=== PATIENT | male | born 1945 | race Caucasian/White ===

== ENCOUNTER 2021-10-05 09:41 | Outpatient (CLI) | payer OTHER ==
[2021-10-05 10:50] LABS: Hemoglobin 14.3 g/dL (13.5-17.5); Mean Corpuscular HGB CONC 32.8 g/dL (32.0-36.0); Mean Corpuscular Hemoglobin 28.2 pg (27.0-33.0); Mean Platelet Volume 10.4 fl (7.4-10.4); Platelet Count 268 10x3/uL (150-450); RBC Distribution Width 12.9 % (11.5-14.5); Red Blood Cell (RBC) Count 5.07 10x6/uL (4.32-5.72); White Blood Cell (WBC) Count 9.9 10x3/uL (3.5-10.5)
[2021-10-05 11:09] LABS: INR-International Normal Ratio 0.9; Prothrombin Time 10.3 sec (9.5-12.1)
[2021-10-05 11:13] LABS: Anion Gap 16 mmol/L (10-20); BUN (Urea Nitrogen) 13 mg/dL (8.4-25.7); Calc. Creatinine Clearance 0 mL/min (70-130); Calcium 9.4 mg/dL (7.8-10.44); Carbon Dioxide 24 mmol/L (23-31); Chloride 104 mmol/L (98-107); Glucose 141 mg/dL (83-110); Potassium 4.5 mmol/L (3.5-5.1); Sodium 139 mmol/L (136-145)
[2021-10-05 21:25] LABS: SARS-CoV-2 PCR by NAA Not Detected (NotDetected)
== END 2021-10-05 09:42 | disposition home or self-care (01) ==
LOC: LABBT 09:41
PROVIDERS: ATTEND Internal Medicine Cardiovascular Disease
DX: Z01.812 Encounter for preprocedural laboratory examination (principal); I47.1 Supraventricular tachycardia; Z20.822 Contact with and (suspected) exposure to COVID-19
CPT/HCPCS: 80048; 85027; 85610; U0003; U0005

== ENCOUNTER 2021-10-10 06:00 | Day surgery (SDC) | payer OTHER ==
[2021-10-06 14:22] VITALS: BMI 29.0
[2021-10-10] MEDS ORDERED: Lidocaine 2% Jelly 5 ML TUBE ONE (06:42)
[2021-10-10] MEDS ORDERED: fentaNYL Citrate/PF 100 MCG/2 ML SYRINGE ONE (06:42)
[2021-10-10] MEDS ORDERED: Phenylephrine 10 MG/ML VIAL ONE (06:42)
[2021-10-10] MEDS ORDERED: Lidocaine 1% (PF) 30 ML VIAL ONE (06:50)
[2021-10-10] MEDS ORDERED: Heparin 10,000 UNITS/ 10 ML VIAL ONE (06:50)
[2021-10-10] MEDS ORDERED: Heparin 25,000 units/D5W 0 ML ONE (06:50)
[2021-10-10] MEDS ORDERED: Isoproterenol 0.2 MG/1 ML AMP ONE (08:05)
[2021-10-10] MEDS ORDERED: DOBUTamine 250 MG/20 ML VIAL ONE (08:06)
[2021-10-10] MEDS ORDERED: DOPamine 400 MG/D5W 250 ML 0 ML ONE (08:07)
[2021-10-10] MEDS ORDERED: Propofol 500 MG/50 ML VIAL ONE (08:17)
[2021-10-10] MEDS ORDERED: PROPOFOL 40 ML ONE (09:20)
== END 2021-10-10 14:01 | disposition home or self-care (01) ==
LOC: SDC 06:00
PROVIDERS: ATTEND Internal Medicine Cardiovascular Disease
PROC: 02583ZZ Destruction of Conduction Mechanism, Percutaneous Approach (ICD-10-PCS; principal; 2021-10-10)
PROC: 02K83ZZ Map Conduction Mechanism, Percutaneous Approach (ICD-10-PCS; principal; 2021-10-10)
PROC: B244ZZ3 Ultrasonography of Right Heart, Intravascular (ICD-10-PCS; principal; 2021-10-10)
DX: I47.1 Supraventricular tachycardia (principal); I10 Essential (primary) hypertension; E78.5 Hyperlipidemia, unspecified; I25.10 Atherosclerotic heart disease of native coronary artery without angina pectoris; I25.2 Old myocardial infarction; I73.9 Peripheral vascular disease, unspecified; I69.328 Other speech and language deficits following cerebral infarction; I69.341 Monoplegia of lower limb following cerebral infarction affecting right dominant side; E11.9 Type 2 diabetes mellitus without complications; N40.0 Benign prostatic hyperplasia without lower urinary tract symptoms; Z87.891 Personal history of nicotine dependence; Z79.01 Long term (current) use of anticoagulants; Z79.4 Long term (current) use of insulin; Z79.84 Long term (current) use of oral hypoglycemic drugs; Z79.899 Other long term (current) drug therapy
CPT/HCPCS: 93005; 93613; 93621; 93653; 93662; C1732; C1759; C1894; C2630; J1250; J1265; J1644; J2001; J2370; J2704

== ENCOUNTER 2022-01-08 10:52 | Outpatient (CLI) | payer OTHER ==
[2022-01-08 12:25] LABS: Hemoglobin 13.7 g/dL (13.5-17.5); Mean Corpuscular HGB CONC 32.6 g/dL (32.0-36.0); Mean Corpuscular Hemoglobin 28.2 pg (27.0-33.0); Mean Corpuscular Volume 86.6 fl (81.2-95.1); Mean Platelet Volume 11.1 fl (7.4-10.4); Platelet Count 270 10x3/uL (150-450); RBC Distribution Width 13.4 % (11.5-14.5); Red Blood Cell (RBC) Count 4.85 10x6/uL (4.32-5.72); White Blood Cell (WBC) Count 8.7 10x3/uL (3.5-10.5)
[2022-01-08 12:33] LABS: INR-International Normal Ratio 0.9; Prothrombin Time 10.2 sec (9.5-12.1)
[2022-01-08 12:34] LABS: Anion Gap 14 mmol/L (10-20); BUN (Urea Nitrogen) 16 mg/dL (8.4-25.7); Calc. Creatinine Clearance 0 mL/min (70-130); Calcium 9.2 mg/dL (7.8-10.44); Carbon Dioxide 23 mmol/L (23-31); Chloride 103 mmol/L (98-107); Estimated GFR 91; Glucose 302 mg/dL (83-110); Sodium 135 mmol/L (136-145)
== END 2022-01-08 10:53 | disposition home or self-care (01) ==
LOC: LABBT 10:52
PROVIDERS: ATTEND Internal Medicine Cardiovascular Disease
DX: Z01.812 Encounter for preprocedural laboratory examination (principal); Z20.822 Contact with and (suspected) exposure to COVID-19
CPT/HCPCS: 80048; 85027; 85610; 87811

== ENCOUNTER 2022-01-11 07:10 | Day surgery (SDC) | payer OTHER ==
[2022-01-09 15:22] VITALS: BMI 28.8
[2022-01-11] MEDS ORDERED: Heparin 25,000 units/D5W 0 ML ONE (07:20)
[2022-01-11] MEDS ORDERED: Heparin 10,000 UNITS/ 10 ML VIAL ONE (07:20)
[2022-01-11] MEDS ORDERED: Protamine Sulfate 50 MG/5 ML VIAL ONE (07:20)
[2022-01-11] MEDS ORDERED: fentaNYL Citrate/PF 100 MCG/2 ML SYRINGE ONE (09:00)
[2022-01-11] MEDS ORDERED: Ketamine 50 MG/ML (10ML VIAL) ONE (09:00)
[2022-01-11] MEDS ORDERED: Midazolam HCl 2 mg/2 ml Vial ONE (09:00)
[2022-01-11] MEDS ORDERED: Phenylephrine 10 MG/ML VIAL ONE ×2 (09:01→09:17)
[2022-01-11] MEDS ORDERED: Propofol 500 MG/50 ML VIAL ONE (09:01)
[2022-01-11] MEDS ORDERED: PROPOFOL 200 MG/20 ML VIAL ONE ×2 (09:17→14:25)
[2022-01-11] MEDS ORDERED: Rocuronium Bromide 10 MG/ML (10ML VIAL) ONE (09:17)
[2022-01-11] MEDS ORDERED: Isoproterenol 0.2 MG/1 ML AMP ONE (10:25)
[2022-01-11] MEDS ORDERED: SUGAMMADEX SODIUM 200 MG/2 ML VIAL ONE (10:55)
[2022-01-11] MEDS ORDERED: Lidocaine 1% MPF 2 ML VIAL ONE (14:25)
== END 2022-01-11 15:15 | disposition home or self-care (01) ==
LOC: SDC 07:10
PROVIDERS: ATTEND Internal Medicine Cardiovascular Disease
PROC: 4A023FZ Measurement of Cardiac Rhythm, Percutaneous Approach (ICD-10-PCS; principal; 2022-01-11)
PROC: 4A0234Z Measurement of Cardiac Electrical Activity, Percutaneous Approach (ICD-10-PCS; principal; 2022-01-11)
PROC: B244ZZ3 Ultrasonography of Right Heart, Intravascular (ICD-10-PCS; principal; 2022-01-11)
PROC: 02K83ZZ Map Conduction Mechanism, Percutaneous Approach (ICD-10-PCS; principal; 2022-01-11)
DX: I47.1 Supraventricular tachycardia (principal); I25.10 Atherosclerotic heart disease of native coronary artery without angina pectoris; I25.2 Old myocardial infarction; I73.9 Peripheral vascular disease, unspecified; I10 Essential (primary) hypertension; E78.5 Hyperlipidemia, unspecified; E11.9 Type 2 diabetes mellitus without complications; K21.9 Gastro-esophageal reflux disease without esophagitis; N40.0 Benign prostatic hyperplasia without lower urinary tract symptoms; Z86.73 Personal history of transient ischemic attack (TIA), and cerebral infarction without residual deficits; Z87.891 Personal history of nicotine dependence; Z79.02 Long term (current) use of antithrombotics/antiplatelets; Z79.4 Long term (current) use of insulin; Z79.84 Long term (current) use of oral hypoglycemic drugs; Z79.899 Other long term (current) drug therapy
CPT/HCPCS: 93005; 93613; 93621; 93623; 93662; J1644; J2250; J2370; J2704; J2720

== ENCOUNTER 2024-04-22 09:09 | Outpatient (CLI) | payer OTHER | END 2024-04-22 09:10 | disposition home or self-care (01) | LOC: CT 09:09 | PROVIDERS: ATTEND Urology | DX: R31.0 Gross hematuria (principal); K80.20 Calculus of gallbladder without cholecystitis without obstruction; N28.1 Cyst of kidney, acquired; K59.00 Constipation, unspecified; K57.30 Diverticulosis of large intestine without perforation or abscess without bleeding; M43.17 Spondylolisthesis, lumbosacral region | CPT/HCPCS: 36415; 74178; 82565 ==

== ENCOUNTER 2024-05-08 21:36 | Inpatient (IN) | payer MEDICARE, OTHER ==
[2024-05-08 22:38] LABS: #Basophils Less than 0.03 10x3/uL (0.0-0.2); #Eosinophils Less than 0.03 10x3/uL (0.0-0.7); %Basophils 0.1 % (0.0-1.0); %Lymphocytes 4.8 % (21.0-51.0); %Monocytes 3.3 % (0.0-10.0); %Neutrophils 91.3 % (42.0-75.0); Hematocrit 41.8 % (42.0-52.0); Hemoglobin 13.3 g/dL (14.0-18.0); Mean Corpuscular HGB CONC 31.8 g/dL (32.0-36.0); Mean Corpuscular Hemoglobin 27.3 pg (27.0-31.0); Mean Corpuscular Volume 85.7 fL (78.0-98.0); Mean Platelet Volume 11.3 fL (7.4-10.4); Platelet Count 163 10x3/uL (130-400); RBC Distribution Width 14.7 % (11.5-14.5); Red Blood Cell (RBC) Count 4.88 mill/uL (4.70-6.10)
[2024-05-08 22:52] LABS: INR-International Normal Ratio 1.4; PTT 33.1 sec (22.9-36.1); Prothrombin Time 16.7 sec (12.0-14.7)
[2024-05-08 22:56] LABS: ALT (SGPT) 42 U/L (8-55); AST (SGOT) 32 U/L (5-34); Albumin 3.2 g/dL (3.4-4.8); Alkaline Phosphatase 150 U/L (40-110); Anion Gap 17 mmol/L (10-20); BUN (Urea Nitrogen) 28 mg/dL (8.4-25.7); Bilirubin, Total 1.2 mg/dL (0.2-1.2); Calc. Creatinine Clearance 0 mL/min (70-130); Calcium 8.6 mg/dL (7.8-10.44); Carbon Dioxide 13 mmol/L (23-31); Chloride 111 mmol/L (98-107); Estimated GFR 49; Globulin 3.2 g/dL (2.4-3.5); Glucose 254 mg/dL (83-110); Lipase 4 U/L (8-78); Protein, Total 6.4 g/dL (5.8-8.1); Sodium 137 mmol/L (136-145)
[2024-05-08 23:01] LABS: Troponin I 0.076 ng/mL (< 0.028)
[2024-05-08] MEDS ORDERED: Azithromycin 500 MG VIAL ONE (23:08)
[2024-05-08] MEDS ORDERED: Sodium Chloride 0.9% 100 ML ONE (23:08)
[2024-05-08] MEDS ORDERED: cefTRIAXone (ROCEPHIN) 2 GM VIAL ONE (23:08)
[2024-05-08 23:45] LABS: Bacteria/HPF None Seen HPF (None Seen); Bilirubin Negative (Negative); Blood, Urine 2+ (Negative); CAUTI Indications for Culture Pelvic or flank pain; Clarity Turbid (Clear); Glucose, Urine (Dipstick) Normal (Negative); Ketone, Urine Negative (Negative); Leukocyte 250 Leu/uL (Negative); Nitrite Negative (Negative); Protein, Urine (Dipstick) 50 mg/dL (Neg-Trace); Specific Gravity, Urine 1.022 (1.002-1.036); Urobilinogen 3 mg/dL (Less than 2); WBC/HPF 21-50 HPF (0-3)
[2024-05-08 23:48] LABS: Urine Culture Reflex Yes Yes
[2024-05-09] MEDS ORDERED: Aspirin Chewable 81 MG TAB ONE (00:49)
[2024-05-09 01:53] LABS: Lactic Acid 2.79 mmol/L (0.5-2.2)
[2024-05-09] MEDS ORDERED: Guaifenesin DM 100-10/5 ML UDCUP PO PRN (02:26)
[2024-05-09] MEDS ORDERED: Ondansetron PF 4 MG/2 ML Vial IVP PRN (02:26)
[2024-05-09] MEDS ORDERED: Acetaminophen 650 MG Suppository PR PRN (02:26)
[2024-05-09] MEDS ORDERED: Senokot S 8.6-50 MG TAB PO PRN (02:26)
[2024-05-09] MEDS ORDERED: Ondansetron ODT 4 MG TAB PO PRN (02:26)
[2024-05-09] MEDS ORDERED: Glucagon 1 MG/ML KIT IM PRN (02:32)
[2024-05-09] MEDS ORDERED: Dextrose 5% in Water 1,000 ML IV PRN (02:32)
[2024-05-09] MEDS ORDERED: Dextrose 50% Abboject 50 ML SYRINGE SLOW IVP PRN (02:32)
[2024-05-09 03:34] LABS: Actual Bicarbonate (HCO3v) 15.9 mEq/L (22-28); Base Excess -9.3 mEq/L (-2.0 to +3.0); Calcium, Ionized (venous) 1.07 mmol/L (1.16-1.32); Chloride (VBG) 108 mmol/L (98-106); Hematocrit-VBG 36 % (42.0-52.0); Hemoglobin (Hb) 12.4 g/dL (12.6-17.4); Potassium (VBG) 3.99 mmol/L (3.70-5.30); Sodium 136 mmol/L (133-146); pH (venous) 7.305 (7.32-7.43)
[2024-05-09 04:00] LABS: #Basophils 0.03 10x3/uL (0.0-0.2); #Eosinophils Less than 0.03 10x3/uL (0.0-0.7); %Basophils 0.2 % (0.0-1.0); %Lymphocytes 2.7 % (21.0-51.0); %Monocytes 3.2 % (0.0-10.0); %Neutrophils 92.4 % (42.0-75.0); Hematocrit 38.2 % (42.0-52.0); Hemoglobin 11.8 g/dL (14.0-18.0); Mean Corpuscular HGB CONC 30.9 g/dL (32.0-36.0); Mean Corpuscular Hemoglobin 27.5 pg (27.0-31.0); Mean Platelet Volume 11.9 fL (7.4-10.4); Platelet Count 143 10x3/uL (130-400); RBC Distribution Width 14.8 % (11.5-14.5); Red Blood Cell (RBC) Count 4.29 mill/uL (4.70-6.10)
[2024-05-09 04:25] VITALS: BMI 27.8
[2024-05-09 04:31] LABS: ALT (SGPT) 35 U/L (8-55); AST (SGOT) 26 U/L (5-34); Albumin 2.7 g/dL (3.4-4.8); Alkaline Phosphatase 107 U/L (40-110); Anion Gap 14 mmol/L (10-20); BUN (Urea Nitrogen) 27 mg/dL (8.4-25.7); Bilirubin, Total 0.6 mg/dL (0.2-1.2); Calc. Creatinine Clearance 64 mL/min (70-130); Carbon Dioxide 13 mmol/L (23-31); Chloride 112 mmol/L (98-107); Estimated GFR 59; Globulin 2.8 g/dL (2.4-3.5); Glucose 318 mg/dL (83-110); Protein, Total 5.5 g/dL (5.8-8.1); Sodium 135 mmol/L (136-145)
[2024-05-09] MEDS: Insulin Regular, Human 100 UNIT/ML 10 ML VIAL SC PRN (04:38)
[2024-05-09] MEDS ORDERED: Sodium Chloride 0.65% Nasal 44 ML BOT EA NARE PRN (04:42)
[2024-05-09 06:34] LABS: Troponin I 0.083 ng/mL (< 0.028)
[2024-05-09] MEDS: Apixaban 2.5 MG TAB PO SCH (09:23)
[2024-05-09] MEDS: Aspirin 81 mg Enteric Coated Tablet PO SCH (09:23)
[2024-05-09] MEDS: Sodium Chloride 0.9% 1,000 ML IV SCH (09:24)
[2024-05-09 09:33] LABS: Lactic Acid 2.93 mmol/L (0.5-2.2)
[2024-05-09] MEDS: Zonisamide 100 MG CAP PO SCH ×2 (13:18→20:15)
[2024-05-09] MEDS: Insulin Lispro 100 UNIT/ML 10 ML VIAL SC PRN ×2 (13:19→20:32)
[2024-05-09] MEDS: Insulin Glargine 30 UNITS/0.3 ML VIAL SC SCH (13:19)
[2024-05-09 14:13] LABS: Lactic Acid 2.33 mmol/L (0.5-2.2)
[2024-05-09] MEDS: Atorvastatin Calcium 40 MG TAB PO SCH (20:15)
[2024-05-09] MEDS: cefTRIAXone\\ROCEPHIN 1 GM in Sodium Chloride 0.9% 100 ML IVPB SCH (20:15)
[2024-05-09] MEDS: lamoTRIgine 100 MG TAB PO SCH (20:16)
[2024-05-09] MEDS: Tamsulosin HCl 0.4 MG CAP PO SCH (20:16)
[2024-05-09] MEDS: Ipratropium/Albuterol 3 ML NEB NEB PRN (20:59)
[2024-05-09] MEDS ORDERED: Non-Formulary Item 1 EACH (Atorvastatin Calcium [Atorvastatin Calcium] 80 MG Tablet) PO SCH (21:00)
[2024-05-09] MEDS ORDERED: Apixaban 5 MG TAB PO SCH (21:00)
[2024-05-10 04:09] LABS: #Basophils Less than 0.03 10x3/uL (0.0-0.2); %Basophils 0.1 % (0.0-1.0); %Eosinophils 0.4 % (0.0-10.0); %Lymphocytes 9.7 % (21.0-51.0); %Monocytes 5.7 % (0.0-10.0); %Neutrophils 83.3 % (42.0-75.0); Hematocrit 36.1 % (42.0-52.0); Hemoglobin 11.3 g/dL (14.0-18.0); Mean Corpuscular HGB CONC 31.3 g/dL (32.0-36.0); Mean Corpuscular Hemoglobin 27.6 pg (27.0-31.0); Mean Platelet Volume 11.1 fL (7.4-10.4); Platelet Count 157 10x3/uL (130-400); RBC Distribution Width 15.2 % (11.5-14.5)
[2024-05-10 04:31] LABS: Anion Gap 11 mmol/L (10-20); BUN (Urea Nitrogen) 25 mg/dL (8.4-25.7); Calc. Creatinine Clearance 91 mL/min (70-130); Calcium 8.4 mg/dL (7.8-10.44); Carbon Dioxide 19 mmol/L (23-31); Chloride 112 mmol/L (98-107); Estimated GFR 89; Glucose 274 mg/dL (83-110); Potassium 3.5 mmol/L (3.5-5.1); Sodium 138 mmol/L (136-145)
[2024-05-10] MEDS: Pantoprazole DR 40 MG TAB PO SCH (08:45)
[2024-05-10] MEDS: Insulin Glargine 30 UNITS/0.3 ML VIAL SC SCH (08:45)
[2024-05-10] MEDS: Multivitamin W/ Minerals 1 TAB PO SCH (08:45)
[2024-05-10] MEDS: Zonisamide 100 MG CAP PO SCH (08:46)
[2024-05-10] MEDS ORDERED: Aspirin 81 mg Enteric Coated Tablet PO SCH (09:00)
[2024-05-10 09:51] LABS: Lactic Acid 1.38 mmol/L (0.5-2.2)
[2024-05-10] MEDS: HumaLOG 300 UNITS/3 ML VIAL SC SCH (12:41)
[2024-05-10] MEDS: Melatonin 3 MG TAB PO SCH (20:39)
[2024-05-11 04:19] LABS: #Basophils 0.04 10x3/uL (0.0-0.2); %Basophils 0.5 % (0.0-1.0); %Eosinophils 4.1 % (0.0-10.0); %Lymphocytes 23.5 % (21.0-51.0); %Monocytes 7.3 % (0.0-10.0); %Neutrophils 64.2 % (42.0-75.0); Hemoglobin 11.2 g/dL (14.0-18.0); Mean Corpuscular HGB CONC 31.1 g/dL (32.0-36.0); Mean Corpuscular Hemoglobin 27.4 pg (27.0-31.0); Mean Platelet Volume 11.3 fL (7.4-10.4); Platelet Count 158 10x3/uL (130-400); RBC Distribution Width 15.1 % (11.5-14.5); Red Blood Cell (RBC) Count 4.09 mill/uL (4.70-6.10)
[2024-05-11 04:32] LABS: Anion Gap 13 mmol/L (10-20); BUN (Urea Nitrogen) 19 mg/dL (8.4-25.7); Calc. Creatinine Clearance 102 mL/min (70-130); Carbon Dioxide 18 mmol/L (23-31); Chloride 113 mmol/L (98-107); Estimated GFR 92; Glucose 190 mg/dL (83-110); Potassium 3.8 mmol/L (3.5-5.1); Sodium 140 mmol/L (136-145)
[2024-05-11] MEDS: Insulin Glargine 30 UNITS/0.3 ML VIAL SC SCH (10:01)
[2024-05-11] MEDS: Insulin Lispro 100 UNIT/ML 10 ML VIAL SC SCH ×2 (10:09→12:22)
[2024-05-11] MEDS: AMOXicillin 250 MG CAP PO SCH (16:30)
[2024-05-11] MEDS: Acetaminophen 325 MG TAB PO PRN (18:28)
[2024-05-11] MEDS: Melatonin 3 MG TAB PO SCH (23:12)
[2024-05-12 04:53] LABS: #Basophils Less than 0.03 10x3/uL (0.0-0.2); %Basophils 0.3 % (0.0-1.0); %Eosinophils 6.4 % (0.0-10.0); %Lymphocytes 23.6 % (21.0-51.0); %Monocytes 6.9 % (0.0-10.0); %Neutrophils 62.5 % (42.0-75.0); Hematocrit 37.8 % (42.0-52.0); Hemoglobin 11.9 g/dL (14.0-18.0); Mean Corpuscular HGB CONC 31.5 g/dL (32.0-36.0); Mean Corpuscular Hemoglobin 26.8 pg (27.0-31.0); Mean Corpuscular Volume 85.1 fL (78.0-98.0); Mean Platelet Volume 11.3 fL (7.4-10.4); Platelet Count 178 10x3/uL (130-400); RBC Distribution Width 14.8 % (11.5-14.5); Red Blood Cell (RBC) Count 4.44 mill/uL (4.70-6.10)
[2024-05-12 05:28] LABS: Anion Gap 11 mmol/L (10-20); BUN (Urea Nitrogen) 16 mg/dL (8.4-25.7); Calc. Creatinine Clearance 106 mL/min (70-130); Calcium 8.4 mg/dL (7.8-10.44); Carbon Dioxide 18 mmol/L (23-31); Chloride 114 mmol/L (98-107); Estimated GFR 93; Glucose 183 mg/dL (83-110); Potassium 3.7 mmol/L (3.5-5.1); Sodium 139 mmol/L (136-145)
[2024-05-12 11:23] VITALS: BP 161/71; TEMP 97.8
== END 2024-05-12 13:56 | disposition home or self-care (01) | DRG 871 ==
LOC: ERS 21:36 → 2NO 05-09 02:23
PROVIDERS: ADMIT Internal Medicine; ATTEND Family Medicine
DX: A41.51 Sepsis due to Escherichia coli [E. coli] (principal); J96.01 Acute respiratory failure with hypoxia; N30.00 Acute cystitis without hematuria; N17.9 Acute kidney failure, unspecified; E87.20 Acidosis, unspecified; I25.10 Atherosclerotic heart disease of native coronary artery without angina pectoris; R65.20 Severe sepsis without septic shock; I10 Essential (primary) hypertension; E78.5 Hyperlipidemia, unspecified; G40.909 Epilepsy, unspecified, not intractable, without status epilepticus; R79.89 Other specified abnormal findings of blood chemistry; E11.65 Type 2 diabetes mellitus with hyperglycemia; N40.0 Benign prostatic hyperplasia without lower urinary tract symptoms; E11.40 Type 2 diabetes mellitus with diabetic neuropathy, unspecified; E11.319 Type 2 diabetes mellitus with unspecified diabetic retinopathy without macular edema; I25.2 Old myocardial infarction; Z86.73 Personal history of transient ischemic attack (TIA), and cerebral infarction without residual deficits; Z79.4 Long term (current) use of insulin; Z86.718 Personal history of other venous thrombosis and embolism; Z79.82 Long term (current) use of aspirin; Z79.899 Other long term (current) drug therapy
CPT/HCPCS: 36415; 36416; 51701; 71045; 71275; 76705; 80048; 80053; 81001; 82805; 83605; 83690; 83880; 84484; 85025; 85610; 85730; 87040; 87077; 87086; 87149; 87186; 87428; 93005; 94640; 96374; 96375; J0456; J0696; J1815; J7030; J7620

== ENCOUNTER 2024-06-30 10:52 | Inpatient (IN) | payer MEDICARE ==
[2024-06-30 11:21] LABS: #Basophils Less than 0.03 10x3/uL (0.0-0.2); %Basophils 0.3 % (0.0-1.0); %Eosinophils 6.5 % (0.0-10.0); %Lymphocytes 35.9 % (21.0-51.0); %Monocytes 8.2 % (0.0-10.0); %Neutrophils 48.8 % (42.0-75.0); Hematocrit 40.6 % (42.0-52.0); Hemoglobin 12.7 g/dL (14.0-18.0); Mean Corpuscular HGB CONC 31.3 g/dL (32.0-36.0); Mean Corpuscular Volume 89.4 fL (78.0-98.0); Mean Platelet Volume 11.4 fL (7.4-10.4); Platelet Count 159 10x3/uL (130-400); RBC Distribution Width 14.2 % (11.5-14.5); Red Blood Cell (RBC) Count 4.54 mill/uL (4.70-6.10)
[2024-06-30 11:25] LABS: Actual Bicarbonate (HCO3v) 21.5 mEq/L (22-28); Analyzer IN Cardio ER; Calcium, Ionized (venous) 1.15 mmol/L (1.16-1.32); Chloride (VBG) 106 mmol/L (98-106); Hematocrit-VBG 38 % (42.0-52.0); Hemoglobin (Hb) 12.8 g/dL (12.6-17.4); Potassium (VBG) 4.38 mmol/L (3.70-5.30); Sodium 136 mmol/L (133-146)
[2024-06-30 11:30] LABS: Lipase 8 U/L (8-78)
[2024-06-30 11:32] LABS: ALT (SGPT) 18 U/L (Less than 45); AST (SGOT) 22 U/L (11-34); Albumin 3.5 g/dL (3.1-4.5); Alkaline Phosphatase 107 U/L (40-110); Anion Gap 12 mmol/L (10-20); BUN (Urea Nitrogen) 17 mg/dL (8.4-25.7); Bilirubin, Total 0.5 mg/dL (0.3-1.2); Calc. Creatinine Clearance 0 mL/min (70-130); Calcium 8.5 mg/dL (7.8-10.44); Carbon Dioxide 19 mmol/L (23-31); Chloride 114 mmol/L (98-107); Estimated GFR 86; Glucose 88 mg/dL (83-110); Potassium 4.5 mmol/L (3.5-5.1); Protein, Total 6.5 g/dL (5.8-8.1); Sodium 140 mmol/L (136-145)
[2024-06-30 11:33] LABS: Acetaminophen Less than 10 mcg/mL (Less than 10); Alcohol Less than 10.0 mg/dL (Less than 10); Salicylate Less than 8.0 mg/dL (Less than 8.0)
[2024-06-30 11:37] LABS: Troponin I Less than 0.010 ng/mL (< 0.028)
[2024-06-30 11:57] LABS: Bacteria/HPF None Seen HPF (None Seen); Bilirubin Negative (Negative); Blood, Urine Negative (Negative); CAUTI Indications for Culture Alt mental st,lethar; Clarity Clear (Clear); Glucose, Urine (Dipstick) Normal (Negative); Ketone, Urine Negative (Negative); Leukocyte Negative Leu/uL (Negative); Nitrite Negative (Negative); Protein, Urine (Dipstick) Negative (Neg-Trace); RBC/HPF None Seen HPF (0-3); Specific Gravity, Urine 1.006 (1.002-1.036); Squamous Epithelial 0-3 HPF (0-3); Urobilinogen Normal mg/dL (Less than 2); WBC/HPF None Seen HPF (0-3)
[2024-06-30 12:01] LABS: Amphetamine Not Detected (NotDetected); Barbiturates Screen Not Detected (NotDetected); Benzodiazepine Screen Not Detected (NotDetected); Cocaine Metabolite Screen Not Detected (NotDetected); Methadone Not Detected (NotDetected); Methamphetamine Not Detected (NotDetected); Opiate Screen Not Detected (NotDetected); Oxycodone Screen Not Detected (NotDetected); Phencyclidine (PCP) Not Detected (NotDetected); THC/Cannabinoid Screen Not Detected (NotDetected); Tricyclic Screen Not Detected (NotDetected)
[2024-06-30 12:18] LABS: Urine Culture Reflex No No
[2024-06-30] MEDS ORDERED: Aspirin Chewable 81 MG TAB ONE (12:34)
[2024-06-30 14:46] VITALS: BMI 27.8
[2024-06-30 14:57] LABS: Troponin I Less than 0.010 ng/mL (< 0.028)
[2024-06-30] MEDS ORDERED: Senokot S 8.6-50 MG TAB PO PRN (16:06)
[2024-06-30] MEDS ORDERED: Acetaminophen 325 MG TAB PO PRN (16:06)
[2024-06-30] MEDS ORDERED: hydrALAZINE 20 MG/ML VIAL SLOW IVP PRN (16:06)
[2024-06-30] MEDS ORDERED: Calcium Carbonate 500 MG ChewTAB PO PRN (16:06)
[2024-06-30] MEDS ORDERED: Bisacodyl 5 MG TAB PO PRN (16:06)
[2024-06-30] MEDS ORDERED: Insulin Regular, Human 100 UNIT/ML 10 ML VIAL SC PRN (16:22)
[2024-06-30] MEDS ORDERED: Dextrose 50% Abboject 50 ML SYRINGE SLOW IVP PRN (16:22)
[2024-06-30] MEDS ORDERED: Glucagon 1 MG/ML KIT IM PRN (16:22)
[2024-06-30] MEDS ORDERED: Dextrose 5% in Water 1,000 ML IV PRN (16:22)
[2024-06-30 17:44] LABS: Troponin I Less than 0.010 ng/mL (< 0.028)
[2024-06-30] MEDS ORDERED: Insulin Regular, Human 100 UNIT/ML 10 ML VIAL ONE (17:48)
[2024-06-30] MEDS: Insulin Regular, Human 100 UNIT/ML 10 ML VIAL SC PRN (17:53)
[2024-06-30] MEDS ORDERED: Insulin Glargine 30 UNITS/0.3 ML VIAL ONE (18:02)
[2024-06-30] MEDS: Insulin Glargine 30 UNITS/0.3 ML VIAL SC SCH (18:04)
[2024-06-30] MEDS: FLU (Fluad Triv) TS24-25 (65UP)/MF59C/PF 45 MCG/0.5 ML Syringe IM ONE (19:10)
[2024-06-30] MEDS ORDERED: Atorvastatin Calcium 40 MG TAB PO SCH (21:00)
[2024-06-30] MEDS: Zonisamide 100 MG CAP PO SCH (21:04)
[2024-06-30] MEDS: lamoTRIgine 25 MG TAB PO SCH (21:04)
[2024-06-30] MEDS: Apixaban 5 MG TAB PO SCH (21:05)
[2024-06-30] MEDS: Atorvastatin Calcium 40 MG TAB PO SCH (21:05)
[2024-07-01 04:00] LABS: #Basophils 0.03 10x3/uL (0.0-0.2); %Basophils 0.5 % (0.0-1.0); %Eosinophils 6.8 % (0.0-10.0); %Lymphocytes 38.2 % (21.0-51.0); %Monocytes 7.7 % (0.0-10.0); %Neutrophils 46.3 % (42.0-75.0); Hematocrit 37.7 % (42.0-52.0); Hemoglobin 11.5 g/dL (14.0-18.0); Mean Corpuscular HGB CONC 30.5 g/dL (32.0-36.0); Mean Corpuscular Volume 88.5 fL (78.0-98.0); Mean Platelet Volume 10.8 fL (7.4-10.4); Platelet Count 153 10x3/uL (130-400); RBC Distribution Width 14.4 % (11.5-14.5); Red Blood Cell (RBC) Count 4.26 mill/uL (4.70-6.10)
[2024-07-01 04:38] LABS: Anion Gap 11 mmol/L (10-20); BUN (Urea Nitrogen) 17 mg/dL (8.4-25.7); Calc. Creatinine Clearance 65 mL/min (70-130); Calcium 8.3 mg/dL (7.8-10.44); Carbon Dioxide 21 mmol/L (23-31); Cardiac Risk 2.8 (Less than 4.5); Chloride 113 mmol/L (98-107); Cholesterol 77 mg/dl (< 200 Desired); Estimated GFR 61; Glucose 129 mg/dL (83-110); HDL Cholesterol 28 mg/dL (>60 Neg Risk); LDL Cholesterol, Calculated 34 mg/dL; Potassium 4.1 mmol/L (3.5-5.1); Sodium 141 mmol/L (136-145); Triglycerides 74 mg/dL (Less than 150)
[2024-07-01] MEDS: Aspirin 81 mg Enteric Coated Tablet PO SCH (09:28)
[2024-07-01] MEDS: Zonisamide 100 MG CAP PO SCH (09:29)
[2024-07-01] MEDS: Pantoprazole 40 MG DR.TAB PO SCH (09:29)
[2024-07-01] MEDS: Melatonin 3 MG TAB PO PRN (20:49)
[2024-07-02 04:33] LABS: #Basophils Less than 0.03 10x3/uL (0.0-0.2); %Basophils 0.3 % (0.0-1.0); %Monocytes 8.9 % (0.0-10.0); %Neutrophils 48.4 % (42.0-75.0); Hematocrit 38.6 % (42.0-52.0); Hemoglobin 11.9 g/dL (14.0-18.0); Mean Corpuscular HGB CONC 30.8 g/dL (32.0-36.0); Mean Corpuscular Hemoglobin 27.2 pg (27.0-31.0); Mean Corpuscular Volume 88.3 fL (78.0-98.0); Mean Platelet Volume 11.1 fL (7.4-10.4); Platelet Count 144 10x3/uL (130-400); RBC Distribution Width 14.1 % (11.5-14.5); Red Blood Cell (RBC) Count 4.37 mill/uL (4.70-6.10)
[2024-07-02 05:06] LABS: Anion Gap 9 mmol/L (10-20); BUN (Urea Nitrogen) 19 mg/dL (8.4-25.7); Calc. Creatinine Clearance 73 mL/min (70-130); Calcium 8.5 mg/dL (7.8-10.44); Carbon Dioxide 21 mmol/L (23-31); Chloride 112 mmol/L (98-107); Estimated GFR 70; Glucose 218 mg/dL (83-110); Potassium 4.2 mmol/L (3.5-5.1); Sodium 138 mmol/L (136-145)
[2024-07-02 12:33] VITALS: BP 131/67; TEMP 97
== END 2024-07-02 15:17 | disposition home health service (06) | DRG 312 ==
LOC: ERS 10:52 → ERHOLD 13:56 → 2SE 18:11 → OBSVTOIN 07-01 08:46
PROVIDERS: ADMIT Internal Medicine; ATTEND Internal Medicine
PROC: 4A10X4Z Monitoring of Central Nervous Electrical Activity, External Approach (ICD-10-PCS; principal; 2024-07-01)
DX: I95.1 Orthostatic hypotension (principal); I47.19 Other supraventricular tachycardia; I25.10 Atherosclerotic heart disease of native coronary artery without angina pectoris; I10 Essential (primary) hypertension; E78.5 Hyperlipidemia, unspecified; E11.9 Type 2 diabetes mellitus without complications; N40.0 Benign prostatic hyperplasia without lower urinary tract symptoms; G40.909 Epilepsy, unspecified, not intractable, without status epilepticus; Z86.73 Personal history of transient ischemic attack (TIA), and cerebral infarction without residual deficits; Z88.0 Allergy status to penicillin; Z95.5 Presence of coronary angioplasty implant and graft
CPT/HCPCS: 36415; 36416; 70450; 70496; 70498; 71045; 80048; 80053; 80061; 80306; 80307; 81001; 82140; 82805; 83605; 83690; 84484; 85025; 93005; 93306; 94760; 95700; 95711; 95957; J1815